=== PATIENT | male | born 1945 | race Caucasian/White ===

== ENCOUNTER → 2018-02-07 | Outpatient (CLI) | payer OTHER, MEDICARE ==
[~2018-02-07] VITALS: Ht 172.7 cm; Wt 96.2 kg
[~2018-02-07] MED LIST: ADVAIR 100-501 EACH INH; AMLODIPINE BESY10 MG PO; ATORVASTATIN CA40 MG PO; LISINOPRIL20 MG PO; SYNTHROID112 MC1 PO; VALTREX 500 MG500 M1 PO
[2018-02-07 09:54] VITALS: BP 134/87
--- NOTE | 2018-02-07 10:37 | NUR ---
Pain Clinic Assessment: 1. History of Osteoarthritis: Not Applicable History of Rheumatoid Arthritis: Not Applicable 2. Height: 5 ft. 8 in. 172.7 cm. Weight: 212.0 lb. oz. 96.163 kg. Patient's BMI: 32.2 3. Vital Signs: BP: 134/87 Pulse: 63 Resp: 16 Temp: 02 Sat: 98 ECG Mon: 4. Pain Intensity: 5 5. Fall Risk: Dizziness: Y Needs help standing or walking: N Fallen in the last 3 months: N Fall risk comments: 6. Patient on Blood Thinner: None 7. History of Hypertension: Y 8. Opioid Therapy greater than 6 weeks: N Opiate Contract Signed: 9. Risk Assessment Tool Provided: LOW RISK 0/3 10. Functional Assessment Tool: 50/70 11. Recreational Drug Use: Never Drug Type: Tobacco Use: Never Smoker Tobacco Type: Amount or Packs/day: How Many Years: Alcohol Use: No Frequency: Quant:
--- NOTE | 2018-02-14 07:51 | HPC ---
[facility] [address] [address] PAIN MANAGEMENT CONSULTATION Name: NAZARIO BECKER Room #: REG CLI Den#: [id number] Admission: 02/07/18 Attend Phys: Nazario Thomas DO Discharge: Date of : 49 Report #: [id number] THIS REPORT FOR: //name// CC: Whitley Joel DATE OF SERVICE: 02/07/2018 REFERRING PHYSICIAN: Whitley Alan APRN with Dr. Yvon Mott. CHIEF COMPLAINT: Low back pain, right lower extremity pain and paresthesias. HISTORY OF PRESENT ILLNESS: As you know, the patient is a pleasant 72-year-old male with longstanding history of low back pain, right lower extremity pain with paresthesias. The patient states pain began 09/17/2016, denies specific injury or trauma. He states his pain become intense enough that he sought evaluation through [facility]. He has undergone various injections including piriformis injection and what appears to be trigger point injections in the lower lumbar spine. The patient reported improvement with the piriformis injection, but no improvement with the trigger point injections provided later. Due to lack of improvement with conservative treatment options, the patient was subsequently referred to our service for evaluation to trial medial branch nerve blocks, possible radiofrequency lesioning to address the patient's axial back pain. There was no suggestion of treatment for his lumbar radicular symptoms. The patient indicates today pain is steady, describes the pain as aching and gnawing, places current pain score at 7/10, daily average at 8/10, worst pain has been is 9-1/2/10. The patient states pain is exacerbated with lying down. Nothing appears to make it better. The patient has trialed conservative treatment options including physical therapy, chiropractic manipulation and even sought treatment with other adjunctive [id number] medications, none of which have provided improvement. Due to lack of improvement with conservative treatment to address axial back pain, the patient was referred to our clinic. PAST MEDICAL HISTORY: 1. Dyslipidemia. 2. Seasonal allergies. 3. Herpes zoster. 4. Hypothyroidism. 5. Hypertension. 6. COPD. 7. Asthma. 8. Gout. 9. Prostate cancer. [address] [address] PAIN MANAGEMENT CONSULTATION Name: NAZARIO BECKER Room #: REG CLHolland Crenshaw#: [id number] Admission: 02/07/18 Attend Phys: Nazario Thomas DO Discharge: Date of : 47 Report #: [id number] 10. Coronary artery disease, status post percutaneous stenting. PAST SURGICAL HISTORY: 1. Prostatectomy. 2. Percutaneous stenting of the coronary arteries x 2. 3. Right toe surgery. 4. Herniorrhaphy. 5. Appendectomy. SOCIAL HISTORY: The patient denies current tobacco use. Denies IV or illicit drug use. Admits to an occasional alcohol beverage. He is retired. He retired years ago. He does not receiving workmen's compensation nor is he trying to obtain disability benefits. He is unaccompanied at today's visit. REVIEW OF SYSTEMS: Positive for fatigue and weakness, wearing corrective eyewear, cataracts, earaches with drainage, sore throat with voice changes, shortness of breath with walking or lying flat, changes in bowel movements, frequent urination, nocturia, incontinence and dribbling to urine, sexual difficulty, lightheadedness and dizziness, numbness and tingling sensations, tremors, nervousness, insomnia, thyroid disease, and obesity. All other review of systems negative per 12-point review of systems other than those listed in history of present illness. Pain impact score 50/70 indicating moderate to severe interference of daily activities secondary to pain. ALLERGIES: No known drug allergies. CURRENT MEDICATIONS: Atorvastatin 40 mg per day, fluticasone/salmeterol 100/50 one puff b.i.d., valacyclovir 500 mg once a day, levothyroxine 112 mcg once a day, lisinopril 20 mg per day, amlodipine 10 mg per day. IMAGING: MRI lumbar spine obtained 12/16/2016 shows mild arthritic changes at L1-L2, mild arthritic changes at L2-L3, L3-L4 shows left foraminal to lateral annular tear without disk protrusion, no central canal neural foraminal stenosis. L4-L5 shows central to left paracentral broad-based disk protrusion contacting and flattening the ventral thecal sac, no results in central canal stenosis, moderate facet arthropathy, no foramen appear patent. L5-S1, moderate encroachment of the left exiting neural foramen, mild neural foraminal stenosis on the right, central canal stenosis, negative broad-based disk bulge. PQRS: The patient has known mild arthritic change to the low back. No rheumatoid arthritis. He places pain intensity 5/10. He is not a fall risk, has not had a fall in the last 3 months. He is not on blood thinners. He is treated for hypertension. He is not on opioids. He has a low risk for opioid addiction. His pain impact tool is 50/70, moderate to severe interference of [facility] [address] [place] [address] PAIN MANAGEMENT CONSULTATION Name: NAZARIO BECKER Room #: REG CLHolland Crenshaw#: [id number] Admission: 02/07/18 Attend Phys: Nazario Thomas DO Discharge: Date of : 47 Report #: [id number] daily activities secondary to pain. PHYSICAL EXAMINATION: VITAL SIGNS: Blood pressure 134/87, pulse is 63, respiratory rate 16 and unlabored. The patient is 98% on room air. Height 5 feet 8 inches tall, weight 212 pounds, BMI calculated 32.2. HEENT: Normocephalic, atraumatic. Pupils equal, round, reactive to light. Extraocular muscles are intact. Sclerae nonicteric without injection. NEUROLOGIC: Cranial nerves 2-12 grossly intact. Speech is fluent. The patient deemed a good historian. LUNGS: Clear. No wheeze, rhonchi or rales. CARDIOVASCULAR: Regular. No appreciable gallop, no rub. ABDOMEN: Soft, obese, nontender, nondistended, normal active bowel sounds. EXTREMITIES: Show no clubbing, no cyanosis, no edema. MUSCULOSKELETAL: Lower extremity strength is equal and symmetrical 5/5. There is some giveaway strength noted on the right when compared to left, this is put pain generation with hip flexion and knee extension. Seated straight leg raising negative. Supine straight leg raising mildly positive right. Ravi's test negative. Modified Gaenslen's positive for axial low back pain. Ankle clonus negative. Babinski is negative. Gait mildly antalgic favoring right lower extremity over left. Lumbar provocation testing is met with axial back pain. ASSESSMENT: 1. Lumbosacral spondylosis with radicular component. 2. Chronic lumbar radiculopathy. 3. Displacement of lumbar intervertebral disk with radicular symptoms. 4. Degeneration of lumbar spine. 5. Chronic intractable pain. PLAN: 1. The patient has been referred to our service by his treating physician, Dr. Yvon Mott for evaluation for treatment for facet arthropathy and pain in lower lumbar spine. We have been requested to begin the process of providing the patient with medial branch nerve blocks to determine if his symptoms would be improved from an axial back pain standpoint. We discussed with the patient, there will be no improvement in his right lower extremity pain with treating facet arthropathy pain, but would certainly see improvement in his axial back pain. The patient states the back pain is what keeps him most irritated in the evening hours, specifically when he is lying in bed or trying to rise from bed after sleep. We have had the patient brought to our clinic today to trial medial branch nerve blocks. If these are successful, then possibly looking towards radiofrequency lesioning. We discussed with the patient the treatment options that are available for facet arthropathy pain in the lower lumbar spine. These were the following treatment [address] [address] PAIN MANAGEMENT CONSULTATION Name: NAZARIO BECKER Room #: REG CLHolland Crenshaw#: [id number] Admission: 02/07/18 Attend Phys: Nazario Thomas DO Discharge: Date of : 47 Report #: [id number] options we discussed today. We discussed physical therapy, stretching exercise, core strengthening and a concerted effort at weight loss. We discussed medication management, the addition of a nonsteroidal anti-inflammatory on a consistent basis and the possibility of adding neuropathic medication to address right lower extremity symptoms. We discussed intra-articular facet injections, medial branch nerve blocks and radiofrequency lesioning as treatment options for facet arthropathy of the lumbar spine. We also discussed surgical options with the patient today after reviewing risks and benefits of all proposed treatment options, the patient chose to move forward with medial branch nerve blocks and possible radiofrequency lesioning. We discussion today with the patient the risks and the benefits of this procedure, these risks include but are not necessarily limited to bleeding, bruising, infection, worsening pain, no relief of pain, also risk of temporary or permanent muscle weakness, temporary or permanent nerve damage, possible paralysis and . The patient states understood and wished to proceed. 2. No medication changes made at today's visit. The patient will continue current medical therapy as previously prescribed. 3. We will see the patient back in followup visit for medial branch nerve block. 4. The patient showed improvement in his axial back pain of greater than 70% after the initial block today. 5. We wish to thank Dr. Yvon Mott for the referral of the patient to our clinic. We will keep you apprised of his response to treatment as we address his axial back pain issues due to facet arthropathy. Once we have completed the radiofrequency lesioning, we will be returning his care to your capable hands. Again, we wish to thank you for the opportunity to see the patient in consultation. PROCEDURE NOTE DESCRIPTION OF PROCEDURE: Bilateral L3, L4, L5 medial branch nerve blocks. This is the first of 2 diagnostic medial branch blocks on the right and left side that the patient is undergoing. After obtaining written consent, the patient was taken back to the fluoroscopy suite and placed in a prone position on the fluoroscopy table with a pillow under the abdomen to decrease the lumbar lordosis. The skin overlying the lumbosacral area was prepped and draped in an aseptic fashion. The L4 transverse process corresponding the L3 medial branch nerve, L5 transverse process corresponding the L4 medial branch nerve on the right and left side was visualized under AP fluoroscopy. The skin and subcutaneous tissue overlying the target sites of injections were anesthetized using 2 mL of 1% lidocaine. A 22-gauge 3-1/2 inch spinal needle with a bend tip was advanced under [address] [place] [address] PAIN MANAGEMENT CONSULTATION Name: NAZARIO BECKER Room #: REG CLVan Ness CampusTawnyTawny#: [id number] Admission: 02/07/18 Attend Phys: Nazario Thomas DO Discharge: Date of : 47 Report #: [id number] fluoroscopic guidance using a superior to inferior and lateral to medial approach to the dorsal, superior and medial aspect of the base of the transverse processes. The needles were then directed ventral, medial and caudad to reach the target locations. An oblique view facilitated needle placement with properly positioned needles in the middle of the "eye" of the Romel dog for the medial branch blocks. At each site the needles rested on periosteum. After negative aspiration for heme or CSF, 0.2 mL of Omnipaque dye was injected at each site under live fluoroscopy, demonstrating absence of vascular uptake. After negative aspiration for heme or CSF, 0.5 of bupivacaine 0.5% was slowly injected at each site to avoid forcing the solution away from the target points. The needles were then removed. The L5 dorsal ramus block on the right and left sides was performed using a slightly oblique approach under fluoroscopic guidance, placing the needle within the groove between the sacral site and the superior articular process of S1. The needle rested on periosteum. After negative aspiration for heme or CSF, 0.2 mL of Omnipaque dye was injected at under live fluoroscopy, demonstrating absence of vascular uptake. After negative aspiration for heme or CSF, 0.5 mL of bupivacaine 0.5% was slowly injected to avoid forcing the solution away from the target point. The needle was then removed. Sterile bandages were placed over the injection site. There were no apparent complications. The patient tolerated the procedure well and was carefully escorted to the recovery room in stable condition. The VAS was 5/10 before the procedure and 0/10 10 minutes after the procedure. After meeting discharge criteria, the patient was discharged home. <ELECTRONICALLY SIGNED> By: Nazario Thomas DO 02/14/18 [id number] Nazario Thomas DO /nt
== END | disposition home or self-care (01) ==
LOC: PAIN 09:08
DX: M47.817 Spondylosis without myelopathy or radiculopathy, lumbosacral region (principal); G89.29 Other chronic pain; M51.16 Intervertebral disc disorders with radiculopathy, lumbar region; I10 Essential (primary) hypertension; I25.10 Atherosclerotic heart disease of native coronary artery without angina pectoris; E78.5 Hyperlipidemia, unspecified; E03.9 Hypothyroidism, unspecified; J44.9 Chronic obstructive pulmonary disease, unspecified; M10.9 Gout, unspecified; Z85.46 Personal history of malignant neoplasm of prostate; Z90.49 Acquired absence of other specified parts of digestive tract; Z98.890 Other specified postprocedural states; Z79.899 Other long term (current) drug therapy

== ENCOUNTER → 2018-02-20 | Outpatient (CLI) | payer OTHER, MEDICARE ==
[~2018-02-20] VITALS: Ht 172.7 cm; Wt 99.3 kg
--- NOTE | ~2018-02-20 | HPC ---
[facility] [address] [address] PAIN MANAGEMENT CONSULTATION Name: NAZARIO BECKER Room #: REG CLHolland Crenshaw#: [id number] Admission: 02/20/18 Attend Phys: Nazario Thomas DO Discharge: Date of : 47 Report #: [id number] THIS REPORT FOR: //name// CC: Isai Joel [facility] DATE OF SERVICE: 02/20/2018 REFERRING PHYSICIAN: Isai Velazquez D.O. CHIEF COMPLAINT: Low back pain and right lower extremity pain with paresthesias. HISTORY OF PRESENT ILLNESS: As you know, the patient is a very pleasant 72-year-old male referred to our clinic to trial intraarticular facet injections/medial branch nerve blocks and possible radiofrequency lesioning. The patient underwent bilateral medial branch nerve blocks at L3, L4 and L5. The patient did very well with this initial injection, returning today to undergo second in the series. If this is successful, then moving on with radiofrequency lesioning. He returns today stating pain mainly of 5/10 but now is experiencing pain on the low back, left side. He has had complete resolution of right-sided pain. ALLERGIES: No known drug allergies. CURRENT MEDICATIONS: Amlodipine, lisinopril, levothyroxine, valacyclovir, fluticasone and atorvastatin. SOCIAL HISTORY: The patient denies tobacco, alcohol, IV or illicit drug use. He is retired, retired years ago, unaccompanied today. IMAGING DATA: No new imaging available. PQRS: The patient has known mild arthritic changes of the low back, no rheumatoid arthritis. He places current pain score at 5/10. He is not a fall risk, has not had a fall in the last 3 months. He is not on blood thinners. He is treated for hypertension. He is not on chronic opioids, has a low opiate addiction potential. He is placing pain impact score 50/70, moderate to severe. PHYSICAL EXAMINATION: VITAL SIGNS: Blood pressure 174/95, pulse 65 and respiratory rate 14 and unlabored. The patient is 94% on room air. Height 5 feet 8 inches tall, weight 219 pounds and BMI calculated 33.3. GENERAL: Well-developed, well-nourished, well-hydrated exogenously obese [address] [address] PAIN MANAGEMENT CONSULTATION Name: NAZARIO BECKER Room #: REG [facility].#: [id number] Admission: 02/20/18 Attend Phys: Nazario Thomas DO Discharge: Date of : 47 Report #: [id number] 72-year-old male appearing stated age, placing current pain score 5/10. HEENT: Normocephalic and atraumatic. Pupils equal, round and reactive to light. EXTREMITIES: Show no clubbing, no cyanosis and no edema. MUSCULOSKELETAL: Lower extremity strength is symmetrical 5/5. Slight giveaway strength noted on the right when compared to left, noted with hip flexion, knee extension. Seated straight leg raising negative. Supine straight leg raising positive. Ravi's test negative. Modified Gaenslen's positive for axial low back pain. Lumbar provocation testing is met with axial back pain with extension, rotation and lateral flexion. ASSESSMENT: 1. Lumbosacral spondylosis with a radicular component. 2. Chronic lumbar radiculopathy. 3. Displacement of the lumbar intervertebral disk with radicular symptoms. 4. Lumbar degeneration. 5. Chronic intractable pain. PLAN: 1. The patient returns today in followup visit having noted transient improvement in symptoms with the medial branch and nerve blocks, lasting for approximately 1 hour. He had a reduction of pain from 5/10 to 10. He returns today in followup visit to undergo second in the series of medial branch nerve blocks in hopes of improving pain. The patient was advised if we see significant pain improvement with this injection for a prolonged period of time. He will be a candidate to undergo radiofrequency lesioning. He has agreed to undergo the medial branch nerve block for the second time to determine if his symptoms would be improved. If this is the case, we will schedule him back for radiofrequency lesioning of either the left or right side. 2. No medication changes made at today's visit. The patient will continue current medical therapy as previously prescribed. 3. The patient to contact our clinic later today or first thing tomorrow to advise us of the efficacy of today's injection. PROCEDURE NOTE DESCRIPTION OF PROCEDURE: Bilateral L3, L4, L5 medial branch nerve blocks. This is the second of 2 diagnostic medial branch blocks on the right and left side that the patient is undergoing. After obtaining written consent, the patient was taken back to the fluoroscopy suite and placed in a prone position on the fluoroscopy table with a pillow under the abdomen to decrease the lumbar lordosis. The skin overlying the lumbosacral area was prepped and draped in an aseptic fashion. The L4 transverse process corresponding to the L3 medial branch nerve on the L5 [address] [address] PAIN MANAGEMENT CONSULTATION Name: NAZARIO BECKER Room #: REG CLHolland Crenshaw#: [id number] Admission: 02/20/18 Attend Phys: Nazario Thomas DO Discharge: Date of : 47 Report #: [id number] transverse process corresponding to the L4 medial branch side was visualized under AP fluoroscopy. The skin and subcutaneous tissue overlying the target sites of injection right and left sides were anesthetized using 2 mL of 1% lidocaine. A 22-gauge 3-1/2 inch spinal needle with a bent tip was advanced under fluoroscopic guidance using a superior to inferior and lateral to medial approach to the dorsal, superior and medial aspect of the base of the transverse processes. The needles were then directed ventral, medial and caudad to reach the target locations. An oblique view facilitated needle placement with properly positioned needless in the middle of the "eye" of the Romel dog for the medial branch blocks. At each site the needles rested on periosteum. After negative aspiration for heme or CSF, 0.5 mL of Omnipaque dye was injected at each site under live fluoroscopy, demonstrating absence of vascular uptake. After negative aspiration for heme or CSF, 0.5 mL of bupivacaine 0.5% was slowly injected at each site to avoid forcing the solution away from the target points. The needles were then removed. The L5 dorsal ramus block on the right and left sides was performed using a slightly oblique approach under fluoroscopic guidance, placing the needle within the groove between the sacral site and the superior articular process of S1. The needle rested on periosteum. After negative aspiration for heme or CSF, 0.5 mL of Omnipaque dye was injected at under live fluoroscopy, demonstrating absence of vascular uptake. After negative aspiration for heme or CSF, 0.5 mL of bupivacaine 0.5% was slowly injected to avoid forcing the solution away from the target point. The needle was then removed. Sterile bandages were placed over the injection site. There were no apparent complications. The patient tolerated the procedure well and was carefully escorted to the recovery room in stable condition. The VAS was 5/10 before the procedure and 2-3/10, 10 minutes after the procedure. After meeting discharge criteria, the patient was discharged home. By: [id number] Nazario Thomas DO /nt
[2018-02-20 09:39] VITALS: BP 174/95
--- NOTE | 2018-02-20 09:41 | NUR ---
Pain Clinic Assessment: 1. History of Osteoarthritis: Not Applicable History of Rheumatoid Arthritis: Not Applicable 2. Height: 5 ft. 8 in. 172.7 cm. Weight: 219.0 lb. oz. 99.338 kg. Patient's BMI: 33.3 3. Vital Signs: BP: 174/95 Pulse: 65 Resp: 14 Temp: 02 Sat: 94 ECG Mon: 4. Pain Intensity: 5 5. Fall Risk: Dizziness: Y Needs help standing or walking: N Fallen in the last 3 months: N Fall risk comments: 6. Patient on Blood Thinner: None 7. History of Hypertension: Y 8. Opioid Therapy greater than 6 weeks: N Opiate Contract Signed: 9. Risk Assessment Tool Provided: LOW RISK 0/3 10. Functional Assessment Tool: 50/70 11. Recreational Drug Use: Never Drug Type: Tobacco Use: Never Smoker Tobacco Type: Amount or Packs/day: How Many Years: Alcohol Use: No Frequency: Quant:
== END | disposition home or self-care (01) ==
LOC: PAIN 07:24
DX: M51.16 Intervertebral disc disorders with radiculopathy, lumbar region (principal); M47.817 Spondylosis without myelopathy or radiculopathy, lumbosacral region; G89.29 Other chronic pain; I10 Essential (primary) hypertension; E66.9 Obesity, unspecified; Z68.33 Body mass index [BMI] 33.0-33.9, adult; Z79.899 Other long term (current) drug therapy